=== PATIENT | female | born 1965 | race Caucasian/White ===

== ENCOUNTER 2018-03-15 21:26 | Emergency (ER) | payer MEDICARE ==
[~2018-03-15] VITALS: Ht 157.5 cm; Wt 76.8 kg
[~2018-03-15 21:26] MED LIST: NORCO; THYROID
[2018-03-15] MEDS ORDERED: HYDROcodone/APAP 5/325 TABLET PO ONE (22:00)
[2018-03-15] MEDS ORDERED: HYDROcodone/APAP 5/325 TABLET ONE (22:05)
[2018-03-15 22:20] LABS: CULTURE INDICATED? YES; MICROSCOPIC INDICATED
[2018-03-15 22:45] VITALS: BP 112/79
[2018-03-15 22:46] LABS: CLUE CELLS NONE SEEN (NONE SEEN); WET PREP WBCS NONE SEEN (FEW)
[2018-03-15] MEDS ORDERED: AZITHROMYCIN 500 MG TABLET PO ONE (23:00)
[2018-03-15] MEDS ORDERED: CEFTRIAXONE 250 MG IM ONE (23:00)
[2018-03-15] MEDS ORDERED: GABAPENTIN (23:10)
[2018-03-15] MEDS ORDERED: KLONOPIN (23:11)
== END 2018-03-15 23:13 | disposition home or self-care (01) ==
LOC: ED 22:43
DX: N30.00 Acute cystitis without hematuria (principal)
CPT/HCPCS: 81001; 87077; 87086; 87186; 87210; 87491; 87591; 87808; 99284